=== PATIENT | male | born 1940 | race Caucasian/White ===

== ENCOUNTER → 2020-05-29 | Day surgery (SDC) | payer MEDICARE, BC, OTHER ==
[2020-05-27 15:30] LABS: BASOPHILS % 0.7 % (0.0-1.0); EOSINOPHILS # (AUTO) 0.1 (0.0-0.4); EOSINOPHILS % 2.6 % (0.0-6.0); HEMATOCRIT 35.8 % (38.2-49.6); HEMOGLOBIN 11.6 g/dL (14.0-18.0); MEAN CORPUSCULAR HEMOGLOBIN 30.8 pg (28-32); MEAN CORPUSCULAR HGB CONC 32.4 g/dL (31-35); MONOCYTES # (AUTO) 0.6 (0.2-0.8); MONOCYTES % 13.6 % (4.4-11.3); NEUTROPHILS # (AUTO) 2.8 (2.1-6.9); NEUTROPHILS % 61.9 % (38.7-80.0); PLATELET COUNT 205 x10e3/uL (140-360); RED BLOOD COUNT 3.77 x10e6/uL (4.3-5.7); RED CELL DISTRIBUTION WIDTH 13.5 % (11.7-14.4)
--- NOTE | 2020-05-27 17:27 | Diagnostic Imaging Report ---
EXAMINATION: CHEST 2 VIEWS INDICATION: Foot surgery ^[id number] ^[id number] ^PRE-OP COMPARISON: None FINDINGS: PA and lateral views TUBES and LINES: None. LUNGS: Mild hyperinflation suggestive of small airways disease. There is no evidence of pneumonia or pulmonary edema. PLEURA: No pleural effusion or pneumothorax. HEART AND MEDIASTINUM: Large hiatal hernia containing transverse colon and likely stomach. The heart is top normal in size. Vascular markings are normal.. BONES AND SOFT TISSUES: No focal osseous lesions. Soft tissues are unremarkable. UPPER ABDOMEN: Unremarkable. IMPRESSION: 1. Large hiatal hernia containing large bowel and likely stomach. 2. Mild pulmonary hyperinflation suggestive of small airways disease. Signed by: Dr. Alfredito Alba MD on 05/27/2020 5:24 PM
[~2020-05-29] MED LIST: ACETAMINOPHEN/CODEINE 300MG - 30MG TAB ONE; AMBIEN10 MG PO; BUPIVACAINE HCL 0.5% INJ 30 ML VIAL INJ ONE; CEFAZOLIN SOD 1 GM/NS 50ML 50 ML IV ONE; DEXAMETHASONE SOD PHOS INJ 4 MG/ML VIAL ONE; FENTANYL CITRATE/PF 100MCG/2 ML INJ ONE; LIDOCAINE HCL 2% LOCAL INJ 5 ML SDV VIAL INJ ONE; OMEPRAZOLE40 MG PO; ONDANSETRON HCL INJ 2MG/ML 2ML 2 MG/ML VIAL ONE; PROPOFOL IV EMULSION 10 MG/ML 20 ML VIAL ONE; SEVOFLURANE INHAL SOLN 250 ML PEN BTL ONE; ZOLOFT50 MG PO
[2020-05-29 08:20] VITALS: BP 151/63
--- NOTE | 2020-05-29 09:29 | Operative Report ---
DATE OF PROCEDURE: 05/29/2020 SURGEON: Trixie Lucas DPM PREOPERATIVE DIAGNOSIS: Right hallux rigidus. POSTOPERATIVE DIAGNOSIS: Right hallux rigidus. PLANNED PROCEDURE: Right Miguel bunionectomy with implant. SURGEON: Ashia Welch DPM ([place]). DIRECTOR OF ONLINE MERCHANDISING: Trixie Lucas DPM. ANESTHESIA: General with a postoperative block consisting of 15 mL of 0.5% Marcaine plain mixed with 1 mL dexamethasone phosphate. HEMOSTASIS: Pneumatic thigh tourniquet set at 350 mmHg for a total time of approximately 30 minutes. MATERIALS: A 2-0 Vicryl, 3-0 Vicryl, 4-0 nylon, one size 2 reference [id number] implant. ESTIMATED BLOOD LOSS: Less than 10 mL. PATHOLOGY: None. PROCEDURE NOTE: The patient was seen in the preoperative waiting room, where the correct procedure and site were identified. The patient was brought into the operating room and placed on the operating table in the supine position. General anesthesia was initiated. At this time, a well-padded pneumatic tourniquet was placed about the patient's right thigh. The right foot, ankle, and leg were then scrubbed, prepped, and draped in the usual aseptic manner. The right leg was then exsanguinated with an Esmarch bandage and the pneumatic thigh tourniquet was inflated to 350 mmHg for a total time of approximately 30 minutes. Attention was directed to the dorsal aspect of the patient's right 1st metatarsophalangeal joint, where a large bony prominence was noted with less than 10 degrees of range of motion. A 5 cm curvilinear incision was made directly over the 1st metatarsophalangeal joint, medial to the extensor hallucis longus tendon. The incision was carried through the subcutaneous tissue them from deep or underlying structures. All vital and neurovascular structures were identified, retracted medially and laterally, and all bleeders were cauterized or ligated as deemed necessary. At this time, through the same incision, a full lateral release was performed consisting of a deep transverse metatarsal ligament and lateral collateral ligament as well as the fibular sesamoidal ligament. Next, utilizing a McGlamry elevator, the 1st metatarsal joint freed of all capsular ligamentous attachments from the sesamoid complex. At this time, a linear capsulotomy was performed at the dorsal aspect of the metatarsophalangeal joint and was freed of all capsular ligaments attachments. It should be noted that upon the capsulotomy, large dorsal and lateral osteophytes were present. There was less than 10% of cartilage remaining on the 1st metatarsal head as well as the base of the proximal phalanx. The proximal phalanx revealed moderate bony overgrowth medially as well as laterally. At this time, utilizing a sagittal saw, the medial, lateral, and dorsal eminences of the 1st metatarsal head were resected and passed off to the back table. Next, the base of the proximal phalanx was resected, approximately one-third and passed off to the back table. Care was taken to ensure that the flexor hallucis longus tendon was intact and functional. At this point, per manufacture protocol, the guidewire was placed into the 1st metatarsal head after proper resection of the remaining cartilage. Utilizing intraoperative fluoroscopy, it was confirmed that the guidewire was placed in the right position dorsally, plantarly, medially, and laterally. Next, utilizing the reamer, proximal and distal cavities were created for the implant. Next, the grommets were placed and tamped into position, followed by actual placement of the implant. Confirmed to be in correct position and location via intraoperative fluoroscopy and the joint was noted to be functioning in a proper anatomic position. The wound was then copiously irrigated with sterile saline. Capsule and deep tissue were reapproximated with 2-0 Vicryl, subcutaneous tissue with 3-0 Vicryl, and the skin was closed using a running interlocking stitch with 4-0 nylon. The incision site was then dressed with Adaptic, 4x4s, Kerlix, David wrap, and a postop shoe. The patient tolerated the procedure and anesthesia well. The patient was transferred to postoperative recovery room with vital signs stable and vascular status intact. The patient was monitored there for a short period of time before being sent home with the following written and oral instructions: 1. Keep the dressing clean, dry, and intact. The patient is to remain partial weightbearing in a postop shoe to avoid excessive ambulation until being seen in the office. 2. The patient was given office number and instructed to contact us if any problems arise. Dictated by Trixie Lucas, RADHA S RADHA Baumann ([facility])/BRENDA /[id number]
== END | disposition home or self-care (01) ==
LOC: OR 05:00
PROVIDERS: ATTEND Podiatrist Foot & Ankle Surgery
DX: M20.21 Hallux rigidus, right foot (principal); K21.9 Gastro-esophageal reflux disease without esophagitis; Z01.810 Encounter for preprocedural cardiovascular examination; Z01.812 Encounter for preprocedural laboratory examination; Z01.818 Encounter for other preprocedural examination; Z11.59 Encounter for screening for other viral diseases
CPT/HCPCS: 36415; 71046; 85025; 93005; J0690; J1100; J2001; J2405; J3010; L8642; U0002